=== PATIENT | male | born 1995 | race Caucasian/White ===

== ENCOUNTER 2019-09-08 16:29 | Emergency (ER) | payer BC ==
[2019-09-08 17:01] VITALS: BP 131/79
--- NOTE | 2019-09-08 17:52 | UC ---
Hand/Wrist HPI - HPI Summary HPI Summary: 24-year-old male comes in with a chief complaint of left wrist pain. Been going on for more than a week. Pain is worse with movement of the wrist. No specific trauma noted. Does radiate up to the left elbow.. No point any weakness he did have some tingling into the hand. No complaints of medial nerve neuropathy. Patient reports full strength. He is in a job that does repetitive motion. - History Of Current Complaint Chief Complaint: UCUpperExtremity Stated Complaint: LT WRIST COMPLAINT Time Seen by Provider: 09/08/19 17:07 Pain Intensity: 5 - Allergies/Home Medications Allergies/Adverse Reactions: Allergies Allergy/AdvReac Type Severity Reaction Status Date / Time erythromycin base Allergy Intermediate Rash Verified 09/08/19 16:53 Home Medications: Home Medications NK [No Home Medications Reported] 09/08/19 [History Confirmed 09/08/19] PMH/Surg Hx/FS Hx/Imm Hx Previously Healthy: Yes - Surgical History Surgical History: Yes Surgery Procedure, Year, and Place: EAR TUBES - Family History Known Family History: Positive: None - Social History Alcohol Use: Occasionally Substance Use Type: None Smoking Status (MU): Never Smoked Tobacco - Immunization History Most Recent Tetanus Shot: 2013 Vaccination Up to Date: Yes Review of Systems All Other Systems Reviewed And Are Negative: Yes Constitutional: Positive: Negative Skin: Positive: Negative Eyes: Positive: Negative ENT: Positive: Negative Respiratory: Positive: Negative Cardiovascular: Positive: Negative Gastrointestinal: Positive: Negative Motor: Positive: Negative Neurovascular: Positive: Other - SEE HPI Musculoskeletal: Positive: Other: - SEE HPI Neurological: Positive: Other - SEE HPI Psychological: Positive: Negative Is Patient Immunocompromised?: No Physical Exam Triage Information Reviewed: Yes Appearance: Well-Appearing, No Pain Distress, Well-Nourished Vital Signs: Initial Vital Signs Temp 97.9 F 09/08/19 16:49 Pulse 66 09/08/19 16:49 Resp 14 09/08/19 16:49 BP 131/79 09/08/19 16:49 Pulse Ox 100 09/08/19 16:49 Vital Signs Reviewed: Yes Eye Exam: Normal Eyes: Positive: Conjunctiva Clear Neck: Positive: Supple Respiratory: Positive: No respiratory distress Musculoskeletal: Positive: Strength Intact, ROM Intact, Other: - Left wrist is tender to palpation circumferentially but the worst tenderness is over the distal radius lateral aspect. Pain is also worse with wrist abduction and abduction. He also has plane of pain with wrist flexion extension. 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 Normal capillary refill distally. No sensation deficit on examination. Elbow has full range of motion full-strength. Neurological: Positive: Alert, Muscle Tone Normal Psychological: Positive: Age Appropriate Behavior Skin Exam: Normal Hand/Wrist Course/Dx - Course Course Of Treatment: Crown Ceramist: Tanya Mcrae S, ([id number]) Legal Mediator: SAL (PEDRO LUISANCE) Report Date: 09/08/2019 17:36:00 Report Status: Final Start of Report Content Patient Name: SHARON LARIOS Medical Record#: [id number] Ordering Physician: Jerome CAREY Acct.#: [id number] : Age: 24 Sex: M Location: [facility] Exam Date: 09/08/191652 ADM Status: REG ER Order Information: WRIST LEFT 3+ VWS Accession Number: [id number] CPT: 09456 Indication: Left wrist injury and pain 3 views of the wrist demonstrates no fracture. No other bone or joint abnormality is identified. IMPRESSION: NO FRACTURE OF THE WRIST IS NOTED. <Electronically signed by Tanya Mcrae MD in OV> 09/08/191731 Dictated By: Tanya Mcrae MD Dictated Date/Time: 1730 Transcribed Date/Time: 09/08/191730 Copy to: CC:Jignesh Dye MD; Jerome CAREY; Sven Leon MD Imaging - [facility] Imaging - [facility] Imaging - [facility] [address] [place] [address] [place], [place] [id number] [place] [id number] ph [phone] ph [phone]) ph ([phone]) End of Report Content ==== History and examination consistent with left wrist tendinitis. I discussed the x-rays with the patient. Splint was placed by nursing [facility] patient neurovascular intact after placement of splint. We'll treat with ice and anti- inflammatories and the splint and then follow up with orthopedics or sports medicine. - Differential Dx/Diagnosis Provider Diagnosis: Left wrist tendonitis Discharge ED - Sign-Out/Discharge Documenting (check all that apply): Patient Departure All imaging exams completed and their final reports reviewed: No Studies - Discharge Plan Condition: Stable Disposition: HOME Patient Education Materials: Tendinitis (ED) Referrals: Jignesh Dye MD [Primary Care Provider] - Joseph Hernandez MD [Medical Doctor] - [facility] [Provider Group] Additional Instructions: FOLLOW UP WITH SPORTS MEDICINE OR ORTHOPEDICS IF NOT COMPLETELY IMPROVED. GET REEVALUATED SOONER IF NOT IMPROVING OR WORSE OR ANY QUESTIONS OR CONCERNS. - Billing Disposition and Condition Condition: STABLE Disposition: Home
== END 2019-09-08 18:14 | disposition home or self-care (01) ==
LOC: UCCORT 16:29
DX: M77.8 Other enthesopathies, not elsewhere classified (principal); Z88.1 Allergy status to other antibiotic agents
CPT/HCPCS: 99202; G0463